=== PATIENT | male | born 1960 | race Hispanic/Latino ===

== ENCOUNTER 2021-05-30 09:09 | Outpatient (CLI) | payer OTHER ==
--- NOTE | 2021-05-30 10:26 | XRay Report ---
LEFT FEMUR 2 VIEW(S) INDICATION / CLINICAL INFORMATION: LEFT FEMUR PAIN COMPARISON: None available. FINDINGS: BONES / JOINT(S): There is a dynamic compression screw-plate device in the proximal femoral neck/femu r. There is an intramedullary nail in the mid and distal femur. There is mild degenerative change in the left hip joint. There is subjective osteopenia. There is a healed fracture of the distal femur. No acute fracture is seen. SOFT TISSUES: No significant abnormality. ADDITIONAL FINDINGS: None. Signer Name: Adrián Donahue MD Signed: 05/30/2021 10:21 AM Workstation Name: [id number]
== END 2021-05-30 09:10 | disposition home or self-care (01) ==
LOC: XRAY 09:09
PROVIDERS: ATTEND Internal Medicine
DX: M16.12 Unilateral primary osteoarthritis, left hip (principal); M85.852 Other specified disorders of bone density and structure, left thigh